=== PATIENT | female | born 1945 | race Two or more races ===

== ENCOUNTER 2018-04-10 08:27 | Emergency (ER) | payer OTHER ==
[~2018-04-10] VITALS: Ht 157.5 cm; Wt 73.9 kg
[2018-04-10] MEDS ORDERED: COZAAR50 MG PO (08:41)
[2018-04-10] MEDS ORDERED: FOLIC ACID0.4 MG PO (08:41)
[2018-04-10] MEDS ORDERED: ASPIRIN81 MG PO (08:41)
[2018-04-10] MEDS ORDERED: EC-NAPROSYN500 MG PO (08:42)
== END 2018-04-10 12:34 | disposition home or self-care (01) ==
LOC: ER 08:27
DX: R42 Dizziness and giddiness (principal)

== ENCOUNTER 2018-05-17 19:50 | Emergency (ER) | payer OTHER ==
[~2018-05-17] VITALS: Ht 160 cm; Wt 77.1 kg
[~2018-05-17 19:50] MED LIST: ASPIRIN81 MG PO; COZAAR50 MG PO; EC-NAPROSYN500 MG PO; FOLIC ACID0.4 MG PO
[2018-05-18] MEDS ORDERED: CIPRO500 MG PO (00:42)
[2018-05-18] MEDS ORDERED: CELECOXIB100 MG PO (00:42)
== END 2018-05-18 00:48 | disposition home or self-care (01) ==
LOC: ER 19:50
DX: S90.851A Superficial foreign body, right foot, initial encounter (principal); W45.8XXA Other foreign body or object entering through skin, initial encounter; Y93.89 Activity, other specified; Y92.89 Other specified places as the place of occurrence of the external cause; Y99.8 Other external cause status

== ENCOUNTER 2019-05-04 00:31 | Inpatient (IN) | payer OTHER ==
[~2019-05-04] VITALS: Ht 157.5 cm; Wt 68.5 kg
[~2019-05-04 00:31] MED LIST changes: +CELECOXIB100 MG PO; +CIPRO500 MG PO
--- NOTE | 2019-05-04 00:56 | NUR ---
SE RECIBE PACIENTE ALERTA Y ORIENTAD X3 CON LA QUEJA PRINCIPAL DE DOLOR DE PECHO Y FALTA DE AIRE DESDE HACE 1 HORA. SE COLOCA EN LA UNIDAD DE DOLOR DE PECHO Y PRESENTA AL DR. GARCIA.
--- NOTE | 2019-05-04 01:44 | NUR ---
SE RECIBE A RONNIE DE EMERGENCIAS AREA DE CHEST UNIT, PTE FEMENINA DE 73 YRS,PTE ALERTA X 3, SE ACOMODA EN RUTHANN CPU # 17 CON BARANDAS ELEVADAS POR LOPEZ SEGURIDAD,SE CONECTA A MONITOR CARDIACO CON OXIMETRIA DE PULSO CONTINUO, SE LE SONYA MUESTRAS Y SE ENVIAN A LABORATORIO. AL MOMENTO DE LA INTERVENCION CON LA PACIENTE REFIERE QUE NO TIENE DOLOR DE PECHO, SE OBSERVARAN POR CAMBIOS EN LOPEZ CONDICION DE ALEJANDRA.
--- NOTE | 2019-05-04 07:00 | NUR ---
SE RECIBE PTE DEL TURNO ANTERIOR EN RUTHANN Y BARANDAS ELEVADAS POR PRECAUCION. PTE CONECTADA A MONITOR CARDIACO Y OXIMETRIA DE PULSO. PTE ALERTA Y ORIENTADA X3, ACOMPANADA DE FAMILIAR. SE OBSERVA BUEN PATRON RESPIRATORIO SATURANDO AL 100%, PIEL TIBIA AL TACTO CON AREA DE VENOPUNCION EN MANO L+ PANDA DE EDEMA Y/O ENROJECIMIENTO RECIBIENDO TRIDIL @ 3 ML/HR.
--- NOTE | 2019-05-04 07:05 | NUR ---
SE MIDEN SIGNOS VITALES Y SE DISMINUYE DRIP DE TRIDIL @ 1ML/HR. SE MANTIENE BAJO OBSERVACION POR CAMBIOS EN CONDICION.
--- NOTE | 2019-05-04 07:30 | NUR ---
DR. Marylou VÁSQUEZ PASA VISITA Y EVALUA A PTE.
--- NOTE | 2019-05-04 08:00 | NUR ---
SE REALIZA EKG POR ORDEN MEDICA VERBAL DE DR. Marylou VÁSQUEZ Y SE PRESENTA AL MISMO.
--- NOTE | 2019-05-04 09:00 | NUR ---
SE ADMINISTRA MEDICAMENTO FRANCESCA ORDEN MEDICA Y SE EDUCA A PTE SOBRE EL MISMO.
--- NOTE | 2019-05-04 10:04 | NUR ---
PTE ES TRANSFERIDA A LA UNIDAD DE CRITICO POR ORDEN VERBAL DE DR. Marylou VÁSQUEZ.
== END 2019-05-05 13:25 | disposition designated cancer center or children's hospital (05) | DRG 281 ==
LOC: ER 00:31 → ICU-2 10:22
PROVIDERS: ADMIT Internal Medicine
PROC: B246ZZZ Ultrasonography of Right and Left Heart (ICD-10-PCS; principal; 2019-05-04)
PROC: 0T9B70Z Drainage of Bladder with Drainage Device, Via Natural or Artificial Opening (ICD-10-PCS; 2019-05-04)
PROC: 8E0ZXY6 Isolation (ICD-10-PCS; 2019-05-04)
DX: I21.4 Non-ST elevation (NSTEMI) myocardial infarction (principal); J45.31 Mild persistent asthma with (acute) exacerbation; I50.22 Chronic systolic (congestive) heart failure; I25.10 Atherosclerotic heart disease of native coronary artery without angina pectoris; I11.0 Hypertensive heart disease with heart failure; I08.3 Combined rheumatic disorders of mitral, aortic and tricuspid valves; M06.89 Other specified rheumatoid arthritis, multiple sites; N39.8 Other specified disorders of urinary system

== ENCOUNTER 2019-07-10 21:57 | Emergency (ER) | payer OTHER ==
[~2019-07-10] VITALS: Ht 157.5 cm; Wt 64.0 kg
[2019-07-10] MEDS ORDERED: LIPITOR40 M1 (22:05)
[2019-07-10] MEDS ORDERED: COZAAR25 MG (22:06)
[2019-07-11] MEDS ORDERED: VISTARIL25 MG PO (04:52)
== END 2019-07-11 05:30 | disposition home or self-care (01) ==
LOC: ER 21:57 → CPU-OBS 22:00 → ER 07-11 05:30
DX: R07.89 Other chest pain (principal); F41.8 Other specified anxiety disorders

== ENCOUNTER 2020-07-12 07:56 | Outpatient (CLI) | payer OTHER ==
[~2020-07-12 07:56] MED LIST changes: +COZAAR25 MG; +LIPITOR40 M1; +VISTARIL25 MG PO
== END 2020-07-12 08:03 | disposition home or self-care (01) ==
LOC: RAD 07:56
PROVIDERS: ATTEND Internal Medicine Pulmonary Disease
DX: J45.30 Mild persistent asthma, uncomplicated (principal)

== ENCOUNTER 2020-09-26 23:19 | Emergency (ER) | payer OTHER ==
[~2020-09-26] VITALS: Ht 160 cm; Wt 68.0 kg
[2020-09-27] MEDS ORDERED: TOPROL XL25 M1 PO ×2 (07:12)
== END 2020-09-27 07:24 | disposition home or self-care (01) ==
LOC: ER 23:19 → CPU-OBS 23:21 → ER 23:21
DX: R07.89 Other chest pain (principal); R00.2 Palpitations

== ENCOUNTER 2021-03-12 03:16 | Emergency (ER) | payer OTHER ==
[~2021-03-12] VITALS: Ht 160 cm; Wt 65.3 kg
[~2021-03-12 03:16] MED LIST changes: +TOPROL XL25 M1 PO
== END 2021-03-12 13:27 | disposition home or self-care (01) ==
LOC: ER 03:16 → CPU-OBS 03:19 → ER 13:27
DX: R07.89 Other chest pain (principal); R00.2 Palpitations

== ENCOUNTER 2022-03-27 13:12 | Outpatient (CLI) | payer OTHER | END 2022-03-27 13:13 | disposition home or self-care (01) | LOC: NUCLEAR 13:12 | DX: Z13.820 Encounter for screening for osteoporosis (principal); Z88.0 Allergy status to penicillin ==

== ENCOUNTER → 2022-08-21 | Outpatient (CLI) | payer OTHER | END | disposition home or self-care (01) | LOC: RAD 07:56 | DX: R07.9 Chest pain, unspecified (principal) ==

== ENCOUNTER 2022-10-11 21:13 | Emergency (ER) | payer OTHER ==
[~2022-10-11] VITALS: Ht 160 cm; Wt 67.1 kg
[2022-10-12] MEDS ORDERED: PYRIDIUM DS200 MG PO (04:00)
[2022-10-12] MEDS ORDERED: CIPRO500 MG PO (04:00)
== END 2022-10-12 04:20 ==
LOC: ER 21:13
DX: N39.0 Urinary tract infection, site not specified (principal); Z88.0 Allergy status to penicillin

== ENCOUNTER → 2023-04-03 | Outpatient (CLI) | payer OTHER ==
[~2023-04-03] MED LIST changes: +PYRIDIUM DS200 MG PO
== END | disposition home or self-care (01) ==
LOC: MAMO-SONO 10:00
PROVIDERS: ATTEND General Practice
DX: Z12.31 Encounter for screening mammogram for malignant neoplasm of breast (principal); Z12.39 Encounter for other screening for malignant neoplasm of breast

== ENCOUNTER 2023-08-21 07:19 | Outpatient (CLI) | payer OTHER | END 2023-08-21 07:23 | disposition home or self-care (01) | LOC: TOM 07:19 | PROVIDERS: ATTEND Psychiatry & Neurology Clinical Neurophysiology | DX: F01.50 Vascular dementia, unspecified severity, without behavioral disturbance, psychotic disturbance, mood disturbance, and anxiety (principal) ==

== ENCOUNTER 2024-03-01 10:05 | Emergency (ER) | payer OTHER ==
[~2024-03-01] VITALS: Ht 152.4 cm; Wt 64.9 kg
[2024-03-01] MEDS ORDERED: TETANUS & DIPHTHERIA TOX,ADULT 0.5 ML VIAL IM ONE (10:45)
[2024-03-01] MEDS ORDERED: CIPRO100 MG PO (10:48)
[2024-03-01] MEDS ORDERED: CIPROFLOXACIN HCL 250 MG TABLET PO ONE (11:00)
[2024-03-01] MEDS ORDERED: CIPROFLOXACIN HCL 500 MG TABLET PO ONE (11:15)
== END 2024-03-01 11:17 | disposition home or self-care (01) ==
LOC: ER 10:05
DX: S61.452A Open bite of left hand, initial encounter (principal); W54.0XXA Bitten by dog, initial encounter; Y93.89 Activity, other specified; Y92.89 Other specified places as the place of occurrence of the external cause; Y99.8 Other external cause status; I10 Essential (primary) hypertension; Z88.0 Allergy status to penicillin
CPT/HCPCS: 90471; 90714; 99282; J1670

== ENCOUNTER 2025-01-14 07:08 | Outpatient (CLI) | payer OTHER ==
[~2025-01-14 07:08] MED LIST changes: +CIPRO100 MG PO
== END 2025-01-14 07:15 | disposition home or self-care (01) ==
LOC: RAD 07:08
PROVIDERS: ATTEND General Practice
DX: M25.559 Pain in unspecified hip (principal); M54.51 Vertebrogenic low back pain